=== PATIENT | female | born 1990 ===

== ENCOUNTER 2021-09-11 16:52 | Emergency (ER) | payer OTHER ==
[~2021-09-11] VITALS: Ht 162.6 cm; Wt 72.6 kg
[2021-09-11] MEDS ORDERED: BASAGLAR K100 UNIT/3 SC (17:35)
== END 2021-09-11 17:37 | disposition home or self-care (01) ==
LOC: ER 16:52
DX: Z76.0 Encounter for issue of repeat prescription (principal); E11.9 Type 2 diabetes mellitus without complications; Z79.4 Long term (current) use of insulin
CPT/HCPCS: 99281